=== PATIENT | male | born 1990 | race Hispanic/Latino ===

== ENCOUNTER 2021-12-05 06:39 | Emergency (ER) | payer OTHER ==
[2021-12-05] MEDS ORDERED: Dexamethasone 10 MG/ML VIAL ONE (07:33)
[2021-12-05] MEDS ORDERED: Bicillin LA 1.2 MILLION UNITS/2 ML SYRINGE ONE (07:33)
== END 2021-12-05 07:38 | disposition home or self-care (01) ==
LOC: CSHERS 06:39
DX: J02.0 Streptococcal pharyngitis (principal)
CPT/HCPCS: 96372; 99283; J0561; J1100